=== PATIENT | female | born 1990 | race African-American/Black ===

== ENCOUNTER 2016-12-01 03:28 | Emergency (ER) | payer OTHER ==
[2016-12-01 03:39] VITALS: BP 115/75; PULSE 87; TEMP 97.8; BMI 21.9
--- NOTE | 2016-12-01 04:04 | PDOC ---
History of Present Illness - General Chief Complaint: Back Pain Stated Complaint: BACK PAIN Time Seen by Provider: 12/01/16 04:03 - History of Present Illness Initial Comments: 12/01/16 05:24 CHIEF COMPLAINT: R sided back pain HISTORY OF PRESENT ILLNESS: 26 yo F with no significant PMH presents to ED with R sided back pain. Patient states she was about to 'do my sister's hair" when she started "feeling my muscle tighten on this side, I thought it would go away but it just kept getting worse." She denies any nausea, vomiting, headache, dizziness, loss of bowel or bladder function, loss of sensation, difficulty breathing, or chest pain. No recent travel or sick contacts. PAST MEDICAL HISTORY: Denies past medical history FAMILY HISTORY: Denies SOCIAL HISTORY: Lives at home with family. Denies tobacco, alcohol, illicit drug use. SURGICAL HISTORY: Denies ALLERGIES: No known drug allergies REVIEW OF SYSTEMS General/Constitutional: Denies fever or chills. Denies weakness, weight change. HEENT: Denies change in vision. Denies ear pain or discharge. Denies sore throat. Cardiovascular: Denies chest pain or shortness of breath. Respiratory: Denies cough, wheezing, or hemoptysis. Gastrointestinal: Denies nausea, vomiting, diarrhea or constipation. Denies rectal bleeding. Genitourinary: Denies dysuria, frequency, or change in urination. Musculoskeletal: Pain to R side of back. Skin and breasts: Denies rash or easy bruising. Neurologic: Denies headache, vertigo, loss of consciousness, or loss of sensation. PHYSICAL EXAM General Appearance: Well-appearing, appropriately dressed. No apparent distress , no intoxication. HEENT: EOMI, PERRLA, normal ENT inspection, normal voice, TMs normal, pharynx normal. No conjunctival pallor. No photophobia, scleral icterus. Neck: No midline tenderness to cervical spine. Supple. Trachea midline. No tenderness, rigidity, carotid bruit, stridor, lymphadenopathy, or thyromegaly. Respiratory/Chest: Lungs CTAB. No shortness of breath, chest tenderness, respiratory distress, accessory muscle use. No crackles, rales, rhonchi, stridor , wheezing, dullness Cardiovascular: RRR. S1, S2. No JVD, murmur, bradycardia, tachycardia. Vascular Pulses: Dorsalis-Pedis (R): 2+, Dorsalis-Pedis (L): 2+ Gastrointestinal/Abdominal: Normal bowel sounds. Abdomen soft, non-distended. No tenderness or rebound tenderness. No organomegaly, pulsatile mass, guarding , hernia, hepatomegaly, splenomegaly. Musculoskeletal/Extremities: Tenderness to R lower back over latissimus dorsi, spasms palpable. No saddle anesthesia. No loss of sensation to lower extremities. Sensory discrimination intact. No midline tenderness to thoracic or lumbar spine. Normal inspection. FROM of all extremities, normal capillary refill. Pelvis Stable. No CVA tenderness. No tenderness to extremities, pedal edema, swelling, erythema or deformity. Integumentary: Appropriate color, dry, warm. 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 Fully oriented, alert. Appropriate mood/affect. Motor strength 5/5. No appreciable EOM palsy, facial droop or sensory deficit. Past History - Past Medical History Allergies/Adverse Reactions: Allergies Allergy/AdvReac Type Severity Reaction Status Date / Time No Known Allergies Allergy Verified 12/01/16 03:36 Home Medications: Ambulatory Orders No Home Medications 0 dose .ROUTE UTDICT 09/18/13 Cyclobenzaprine HCl [Flexeril -] 5 mg PO TID #10 tablet 12/01/16 Naproxen 250 mg PO BID #14 tablet 12/01/16 Asthma: No Cancer: No Cardiac Disorders: No Diabetes: No HTN: No Seizures: No Thyroid Disease: No Other medical history: denies - Psycho/Social/Smoking Cessation Hx Anxiety: Yes (PANIC ATTACKS) Suicidal Ideation: No Smoking Status: No Smoking History: Never smoked Have you smoked in the past 12 months: No Number of Cigarettes Smoked Daily: 0 Hx Alcohol Use: No Drug/Substance Use Hx: No Hx Substance Use Treatment: No *Physical Exam - Vital Signs Last Vital Signs Temp Pulse Resp BP Pulse Ox 97.8 F 87 18 115/75 100 12/01/16 03:37 12/01/16 03:37 12/01/16 03:37 12/01/16 03:37 12/01/16 03:37 Medical Decision Making - Medical Decision Making 12/01/16 06:13 26 yo F with no PMH presents to ED with R sided back pain. -2 mg Valium po -800 mg Motrin Patient reassessed, states she still has pain at this time. -Additional 2mg Valium po Patient reassessed. Patient is sleeping at this time but arousable; she states she is feeling a little better and is able to sit up in her bed. Patient states she is ready to go home. Advised patient to take medications as prescribed and of signs and symptoms for return to ED. Advised patient to follow up with orthopedics today for further evaluation of her back pain. Patient verbalized understanding and agrees to plan. *DC/Admit/Observation/Transfer Diagnosis at time of Disposition: Muscle spasm - Discharge Dispostion Disposition: HOME Condition at time of disposition: Stable Admit: No - Prescriptions Prescriptions: Cyclobenzaprine HCl [Flexeril -] 5 mg PO TID #10 tablet Naproxen 250 mg PO BID #14 tablet - Referrals Referrals: Lakia Newton MD [Primary Care Provider] - Jax Cárdenas MD [Staff Physician] - - Patient Instructions Printed Discharge Instructions: DI for Back Spasm Additional Instructions: Please take medication as prescribed; do NOT drive or operate machinery while taking cyclobenzaprine. As discussed, please follow up with orthopedics today. If you experience any loss of sensation to your legs, thighs, or have any loss of bowel or bladder function, or develop any new or worsening symptoms, please return to the ER immediately. - Post Discharge Activity Work/School Note: Back to Work
[2016-12-01] MEDS ORDERED: diazePAM 2 MG TABLET PO ONE ×2 (04:05→05:11)
[2016-12-01] MEDS ORDERED: diazePAM 2 MG TABLET ONE ×2 (04:18→05:18)
[2016-12-01] MEDS ORDERED: IBUPROFEN 400 MG TABLET (FP) PO ONE ×2 (04:23→04:27)
[2016-12-01 05:58] LABS: URINE APPEARANCE CLOUDY; URINE BILIRUBIN NEGATIVE (NEGATIVE); URINE BLOOD NEGATIVE (NEGATIVE); URINE COLOR AMBER; URINE GLUCOSE (UA) NEGATIVE (NEGATIVE); URINE KETONE NEGATIVE (NEGATIVE); URINE LEUK ESTERASE NEGATIVE (NEGATIVE); URINE NITRITE NEGATIVE (NEGATIVE); URINE UROBILINOGEN 4.0 E.U/dl E.U./dl (0.2-1.0)
[2016-12-01 06:03] LABS: URINE PROTEIN 1+ (NEGATIVE)
[2016-12-01 06:06] LABS: URINE MUCUS MANY
== END 2016-12-01 06:53 | disposition home or self-care (01) ==
LOC: JER 03:28
DX: M62.830 Muscle spasm of back (principal)
CPT/HCPCS: 81003; 81015; 84703; 87086; 99282-25

== ENCOUNTER 2017-02-09 13:19 | Emergency (ER) | payer OTHER ==
[2017-02-09 13:26] VITALS: BP 120/80; PULSE 88; TEMP 97.7; BMI 20.3
[2017-02-09 14:33] LABS: MCHC 32.2 g/dl (32.0-36.0); MEAN CELL VOLUME 93.1 fl (80-96); MEAN PLT VOLUME 11.1 fl (7.5-11.1); NEUTROPHILS 52.7 % (42.8-82.8); RDW 15.6 % (11.6-15.6); WHITE BLOOD COUNT 5.3 K/mm3 (4.0-10.0)
--- NOTE | 2017-02-09 14:36 | PDOC ---
History of Present Illness - General Chief Complaint: Shortness of Breath Stated Complaint: CHEST PAIN, SOB Time Seen by Provider: 02/09/17 13:49 History Source: Patient Exam Limitations: No Limitations - History of Present Illness Initial Comments: 02/09/17 14:32 26 yr female history of anemia states she has left sided chest pain, cough , sore throat and feels weak. Pt states this started today at 930 during a job interview. Pt states she has had the same symtpoms happen at random times before. Pt denies fever, chills , does not use any OCP, last menstrual one week ago. Pt admits to smoking, drinks "4 cups" different types of alcohol daily. denies drug use. 02/09/17 14:33 Severity: mild Associated Symptoms: reports: chest pain, cough, weakness Aspirin Received prior to arrival: Yes: 81 mg x 1 Past History - Past Medical History Allergies/Adverse Reactions: Allergies Allergy/AdvReac Type Severity Reaction Status Date / Time No Known Allergies Allergy Verified 02/09/17 13:20 Home Medications: Ambulatory Orders NK [No Known Home Medication] 02/09/17 Asthma: No Cancer: No Cardiac Disorders: No Diabetes: No HTN: No Psychiatric Problems: Yes (anxeity) Seizures: No Thyroid Disease: No - Reproductive History LMP Normal: Yes Is Patient Now?: No - Psycho/Social/Smoking Cessation Hx Anxiety: Yes (PANIC ATTACKS) Suicidal Ideation: No Smoking Status: No Smoking History: Never smoked Have you smoked in the past 12 months: Yes Number of Cigarettes Smoked Daily: 4 Information on smoking cessation initiated: Yes Hx Alcohol Use: No Drug/Substance Use Hx: No Hx Substance Use Treatment: No Review of Systems - Review of Systems Able to Perform ROS?: Yes Is the patient limited Portuguese proficient: No Constitutional: No: Symptoms Reported HEENTM: Yes: See HPI Respiratory: Yes: See HPI Cardiac (ROS): Yes: See HPI *Physical Exam - Vital Signs Last Vital Signs Temp Pulse Resp BP Pulse Ox 97.7 F 88 18 120/80 100 02/09/17 13:22 02/09/17 13:22 02/09/17 13:22 02/09/17 13:22 02/09/17 13:22 - Physical Exam General Appearance: Yes: Nourished, Appropriately Dressed HEENT: positive: EOMI, TYREE, Pharyngeal Erythema, Tonsillar Erythema. negative : Tonsillar Exudate Neck: positive: Supple. negative: Lymphadenopathy (R), Lymphadenopathy (L) Respiratory/Chest: positive: Chest Tender (reproducable left sternal border ), Lungs Clear, Normal Breath Sounds Cardiovascular: positive: Regular Rhythm, Regular Rate Gastrointestinal/Abdominal: positive: Normal Bowel Sounds, Soft Musculoskeletal: positive: Normal Inspection Extremity: positive: Normal Capillary Refill, Normal Inspection, Normal Range of Motion Integumentary: positive: Normal Color, Dry, Warm, Jaundice (mild sclera icterus) , Pale, Other (pale ) Neurologic: positive: Fully Oriented, Alert, Normal Mood/Affect, Normal Response , Motor Strength 5/5 Heart Score/ECG Review - ECG Intrepretation Rhythm: Regular Rhythm - ECG Impressions Normal ECG: Yes Non-specific ST Elevation: No Comment:: 02/09/17 15:58 normal EKG signed by Dr.Levin Hopson ED Treatment Course - LABORATORY CBC & Chemistry Diagram: 02/09/17 14:00 02/09/17 15:45 Medical Decision Making - Medical Decision Making 02/09/17 14:58 cc: sore throat, cough, chest pain , weakness will r/o strep, labs, EKG CXR toradol anxiety vs musculoskeltal cp no risk factors for PE neg travel or recent surgery no control risk , no history of cancer Wells criteria low risk 02/09/17 16:39 labs, CXR EKG normal. pt states she is hungry and needs to go home and eat. dc inst given to pt. pt states she feels better her pain has subsided. dc with friend. *DC/Admit/Observation/Transfer Diagnosis at time of Disposition: Cough - Discharge Dispostion Disposition: HOME Condition at time of disposition: Good - Referrals Referrals: Lakia Newton MD [Primary Care Provider] - - Patient Instructions Additional Instructions: follow with your medical doctor for follow up drink pleanty of fluids to stay well hydrated take motrin for any pain as needed return to ER for any worsening symptoms
[2017-02-09] MEDS ORDERED: KETOROLAC TROMETHAMINE 30 MG/1 ML VIAL IVPUSH ONE (14:58)
[2017-02-09] MEDS ORDERED: FAMOTIDINE 20 MG/50 ML IVPB 50 ML IVPB ONE ×2 (14:58→15:07)
[2017-02-09] MEDS ORDERED: KETOROLAC TROMETHAMINE 30 MG/1 ML VIAL ONE (15:06)
[2017-02-09] MEDS ORDERED: NAPROXEN 500 MG TABLET (FP) PO ONE (15:30)
[2017-02-09] MEDS ORDERED: RANITIDINE HCL 150 MG TABLET (FP) PO ONE (15:31)
[2017-02-09] MEDS ORDERED: RANITIDINE HCL 150 MG TABLET (FP) ONE (15:37)
[2017-02-09] MEDS ORDERED: NAPROXEN 500 MG TABLET (FP) ONE (15:37)
--- NOTE | 2017-02-09 15:55 | EKG ---
Test Reason : Blood Pressure : / mmHG Vent. Rate : 079 BPM Atrial Rate : 079 BPM P-R Int : 152 ms QRS Dur : 068 ms QT Int : 418 ms P-R-T Axes : 071 058 051 degrees QTc Int : 479 ms NORMAL SINUS RHYTHM NORMAL ECG NO PREVIOUS ECGS AVAILABLE Confirmed by EMRE LEÓN MD ([id number]) on 02/09/2017 3:55:23 PM Referred By: Confirmed By:EMRE LEÓN MD
[2017-02-09 15:57] LABS: URINE APPEARANCE CLEAR; URINE BILIRUBIN NEGATIVE (NEGATIVE); URINE BLOOD NEGATIVE (NEGATIVE); URINE COLOR YELLOW; URINE GLUCOSE (UA) NEGATIVE (NEGATIVE); URINE KETONE NEGATIVE (NEGATIVE); URINE LEUK ESTERASE NEGATIVE (NEGATIVE); URINE NITRITE NEGATIVE (NEGATIVE); URINE PROTEIN NEGATIVE (NEGATIVE); URINE UROBILINOGEN 2.0 E.U/dl E.U./dl (0.2-1.0)
[2017-02-09 16:20] LABS: ALBUMIN 3.5 g/dl (3.4-5.0); ALK PHOS 94 U/L (45-117); ANION GAP 7 (8-16); BILIRUBIN,TOTAL 1.9 mg/dL (0.2-1.0); CALCIUM 8.7 mg/dL (8.5-10.1); CO2 28 mmol/L (21-32); CREATININE 0.7 mg/dL (0.55-1.02); GLUCOSE,RANDOM 70 mg/dL (74-106); SGOT/AST 16 U/L (15-37); SGPT/ALT 11 U/L (12-78)
[2017-02-09 22:14] LABS: PLATELET COUNT 122 K/MM3 (134-434); PLATELET ESTIMATE SLT DECREASED (NORMAL)
== END 2017-02-09 17:30 | disposition home or self-care (01) ==
LOC: JERFT 13:19
DX: R05 Cough (principal); F41.0 Panic disorder [episodic paroxysmal anxiety]; Z87.891 Personal history of nicotine dependence
CPT/HCPCS: 36415; 71020-TC; 80053; 80307; 81003; 84703; 85025; 87070; 87430; 93005; 93010; 99281-25

== ENCOUNTER 2018-03-10 08:00 | Inpatient (IN) | payer OTHER ==
[2018-03-10] MEDS: DEXTROSE 5%-LACTATED RINGERS 1,000 ML IV SCH ×2 (09:30→13:00)
[2018-03-10 10:06] LABS: BASO % 0.3 % (0-2.0); EOS % 0.8 % (0-4.5); HEMATOCRIT 32.5 % (32.4-45.2); HEMOGLOBIN 10.9 GM/dL (10.7-15.3); LYMPH % 21.5 % (8-40); MCH 29.1 pg (25.7-33.7); MCHC 33.6 g/dl (32.0-36.0); MEAN CELL VOLUME 86.4 fl (80-96); MEAN PLT VOLUME 11.3 fl (7.5-11.1); MONO % 8.7 % (3.8-10.2); NEUT % 68.7 % (42.8-82.8); PLATELET COUNT 90 K/MM3 (134-434); RBC 3.76 M/mm3 (3.60-5.2); RDW 13.1 % (11.6-15.6); WHITE BLOOD COUNT 7.5 K/mm3 (4.0-10.0)
[2018-03-10] MEDS ORDERED: DINOPROSTONE 10 MG VAGINAL SUPPOSITORY VG ONE (10:20)
[2018-03-10 10:22] LABS: INR 1.1 (0.82-1.09); PROTHROMBIN TIME (PATIENT) 12.4 SEC (9.7-13.0)
[2018-03-10 10:25] LABS: ACTIVATED PTT 29.5 SECONDS (26.9-34.4); ANION GAP 6 (8-16); BLOOD UREA NITROGEN 8 mg/dL (7-18); CALCIUM 8.1 mg/dL (8.5-10.1); CHLORIDE 106 mmol/L (98-107); CO2 26 mmol/L (21-32); CREATININE 0.5 mg/dL (0.55-1.02); GLUCOSE,RANDOM 125 mg/dL (74-106); POTASSIUM 3.8 mmol/L (3.5-5.1); SODIUM 138 mmol/L (136-145)
[2018-03-10] MEDS ORDERED: BUTORPHANOL TARTRATE 1 MG/ML VIAL IVPB ONE (10:32)
[2018-03-10] MEDS ORDERED: PROMETHAZINE HCL 25 MG/1 ML VIAL IVPB ONE (10:32)
[2018-03-10] MEDS ORDERED: SODIUM PHOSPHATE/NA BIPHOS 133 ML ENEMA PR ONE (10:35)
--- NOTE | 2018-03-10 10:43 | HP ---
Past Medical History - Primary Care Physician PCP:: Camille Cifuentes - Admission Chief Complaint: 27 yrs b/f, , 40.4 weeks , pt requests for induction of labor History of Present Illness: PNC at , [facility] . wt gain 52 lbs panel 07/21/17 : O pos, Rubella immune, Hbsag neg, Rpr nr, Hiv neg, Sickle neg, Gc/ct neg 11/25/17 Pngt 86, Quantiferon neg, Rpr nr 02/07/18 Hiv neg, GBS neg, gc/ct neg h/h 11.1/33.4Plt 102 Serial son done by [facility] for growth NT screen neg, Modified Sequential neg 03/07/18 sono SLIuP, vx, ant placenta, mohamud 21.4, ( progressively increasing MOHAMUD noted, 02/15/18 mohamud 18.8) , BPP8/8, EFW 7'3' ,umblical artery dopplers normal History Source: Patient, Medical Record Limitations to Obtaining History: No Limitations - Past Medical History [employer]: No: Migraine, Seizure Cardiovascular: No: HTN Pulmonary: No: Asthma Gastrointestinal: No: Gastritis Renal/: No: UTI Reproductive: Yes: Other (h/o abn pap) ...: 3 ...Para: 2 (08/20/07 6'12'( molly ) 03/15/13 8'6" ([facility])) ...Term: 2 (h/i induction of labor due to post term in previous pregn .) ...LMP: 05/30/17 ... Weeks Gestation by Dates: 40.4 ...EDC by Dates: 03/06/18 ...EDC by Sono: 03/06/18 Heme/Onc: Yes: Anemia Infectious Disease: Yes: STD's (past h/o chlamydia h/o HPV pos) Psych: Yes: Anxiety Endocrine: No: Diabetes Mellitus, Hypothyroidism - Past Surgical History Past Surgical History: Yes: None Hx Myomectomy: No Hx Transabdominal Cerclage: No - Smoking History Smoking history: Never smoked Have you smoked in the past 12 months: Yes Aproximately how many cigarettes per day: 4 - Alcohol/Substance Use Hx Alcohol Use: No History of Substance Use: reports: None Home Medications - Allergies Allergies/Adverse Reactions: Allergies Allergy/AdvReac Type Severity Reaction Status Date / Time No Known Allergies Allergy Verified 03/10/18 11:58 - Home Medications Home Medications: Ambulatory Orders Vitamins (Sjr) - 1 tab PO DAILY 01/30/18 Physical Exam - Maternity Vital Signs: Selected Entries 03/10/18 08:00 Temperature 97.6 F Pulse Rate 88 Respiratory 18 Rate Blood Pressure 116/69 Weight 195 lb Constitutional: Yes: Well Nourished Eyes: Yes: WNL HENT: Yes: WNL, Normocephalic Neck: Yes: WNL Cardiovascular: Yes: WNL Lungs: Clear to auscultation Breast(s): Yes: WNL - Abdominal Exam/OB Fundal Height: 40 Number of Fetuses: Single Presentation: Vertex Contractions: Yes Regularity: Irregular (8-10 min) Intensity: Mild Monitor Mode: External Heart Rate (range): 130 Heart Rate Location: [facility] Category: I Accelerations: Uniform Decelerations: None - Vaginal Exam/OB Vaginal Bleediing: No Speculum Exam: No Dilatation (cm): ftpost Effacement (%): 40 Amniotic Membrane Status: Intact Presentation: Vertex/Position (exam at 10.20 AM Cervidil inserted) Station: -3 - Physical Exam Musculoskeletal: Yes: WNL Extremities: Yes: WNL. No: Calf Tenderness Edema: Yes Edema: LLE: 1+, RLE: 1+ Integumentary: Yes: Tattoos Deep Tendon Reflex Grade: Normal +2 ...Motor Strength: WNL Psychiatric: Yes: WNL - Labs Lab Results: CBC, BMP 03/10/18 09:50 Laboratory Tests 03/10/18 03/10/18 09:50 09:50 PT with INR 12.40 INR 1.10 PTT (Actin FS) 29.5 Sodium 138 Potassium 3.8 Chloride 106 Carbon Dioxide 26 BUN 8 Creatinine 0.5 L Random Glucose 125 H Calcium 8.1 L Laboratory Tests 03/10/18 09:50 Blood Type O POSITIVE Antibody Screen Negative Problem List - Problems (1) Post term over 40 weeks Code(s): O48.0 - POST-TERM (2) Elective induction of labor planned Code(s): UNB5142 - (3) Gestational thrombocytopenia Code(s): O99.119 - OTH DIS OF BLD/BLD-FORM ORG/IMMUN MECHNSM COMP PREG,UNSP TRI ; D69.6 - THROMBOCYTOPENIA, UNSPECIFIED Qualifiers: Trimester: third trimester Qualified Code(s): O99.113 - Other diseases of the blood and blood-forming organs and certain disorders involving the immune mechanism complicating , third trimester; D69.6 - Thrombocytopenia, unspecified; D69.6 - Thrombocytopenia, unspecified; D69.6 - Thrombocytopenia, unspecified Assessment/Plan 27 yrs , post term pregn 40.4 weeks , gestational thrombocytopenia ( 90 plt ) , high MOHAMUD (21.4) Polyhydramnios Cx not faforable, pt declines to wait plan induction : of labor Cervidil. trial of labor vag , delivery stadol phenrgan for labor analgesia
[2018-03-10 11:06] VITALS: BMI 30.5
[2018-03-11] MEDS ORDERED: OXYTOCIN 30 UNITS in 0.9% NS 30 UNIT/500 ML INFUS.BAG IVPB ONE (02:57)
[2018-03-11] MEDS ORDERED: OXYTOCIN 30 UNITS in 0.9% NS 30 UNIT/500 ML INFUS.BAG IVPB SCH (03:00)
[2018-03-11] MEDS ORDERED: BUTORPHANOL TARTRATE 1 MG/ML VIAL ONE ×4 (05:15→11:57)
[2018-03-11] MEDS ORDERED: PROMETHAZINE HCL 25 MG/1 ML VIAL ONE ×2 (05:15→11:57)
--- NOTE | 2018-03-11 08:21 | PN ---
Progress Note (short form) - Note Progress Note: cx 1 cm, 25, vx -3 mi, fhr cat 1, regular contraction, care transfer to DR [place]
[2018-03-11] MEDS: DEXTROSE 5%-LACTATED RINGERS 1,000 ML IV SCH (10:15)
[2018-03-11 11:59] LABS: HEMATOCRIT 35.5 % (32.4-45.2); HEMOGLOBIN 11.9 GM/dL (10.7-15.3); MCH 28.8 pg (25.7-33.7); MCHC 33.6 g/dl (32.0-36.0); MEAN CELL VOLUME 85.6 fl (80-96); MEAN PLT VOLUME 11.5 fl (7.5-11.1); PLATELET COUNT 88 K/MM3 (134-434); RBC 4.15 M/mm3 (3.60-5.2); RDW 13.1 % (11.6-15.6); WHITE BLOOD COUNT 9.8 K/mm3 (4.0-10.0)
[2018-03-11] MEDS ORDERED: BUTORPHANOL TARTRATE 1 MG/ML VIAL IVPB ONE (12:30)
[2018-03-11] MEDS ORDERED: PROMETHAZINE HCL 25 MG/1 ML VIAL IVPB ONE (12:30)
[2018-03-11] MEDS ORDERED: OXYTOCIN 20 UNITS in 0.9% NS 20 UNIT/1,000 ML INFUS.BAG IV ONE (13:05)
[2018-03-11] MEDS ORDERED: BISACODYL 10 MG SUPP.RECT RC PRN (14:29)
[2018-03-11] MEDS ORDERED: METHYLERGONOVINE MALEATE 0.2 MG/1 ML AMP IM PRN (14:29)
[2018-03-11] MEDS ORDERED: BENZOCAINE 20% 57 GM BOTTLE TP PRN (14:29)
[2018-03-11] MEDS ORDERED: BENZOCAINE 28 GM HEMORRHOIDAL OINTMENT TP PRN (14:29)
[2018-03-11] MEDS ORDERED: D5W-LR W/ 20 UNITS OXYTOCIN 20 UNIT/1,000 ML INFUS.BAG IV SCH (14:30)
[2018-03-11] MEDS ORDERED: OXYTOCIN 20 UNITS in 0.9% NS 20 UNIT/1,000 ML INFUS.BAG IV SCH (14:30)
[2018-03-11] MEDS: FERROUS SO4 325 MG TABLET (FP) PO SCH (17:11)
[2018-03-11] MEDS: IBUPROFEN 600 MG TABLET (FP) PO PRN ×2 (17:11→22:01)
[2018-03-11] MEDS: ACETAMINOPHEN 325 MG TABLET (FP) PO PRN ×2 (17:12→22:02)
[2018-03-11] MEDS: WITCH HAZEL 50% (TUCKS) 40 PAD/JAR PAD TP PRN (22:02)
[2018-03-12] MEDS: IBUPROFEN 600 MG TABLET (FP) PO PRN ×3 (04:51→20:36)
[2018-03-12] MEDS: ACETAMINOPHEN 325 MG TABLET (FP) PO PRN ×3 (04:51→20:36)
[2018-03-12] MEDS: FERROUS SO4 325 MG TABLET (FP) PO SCH ×2 (08:20→17:01)
[2018-03-12 09:34] LABS: BASO % 0.2 % (0-2.0); EOS % 0.7 % (0-4.5); HEMATOCRIT 30.2 % (32.4-45.2); HEMOGLOBIN 10.3 GM/dL (10.7-15.3); LYMPH % 17.5 % (8-40); MCH 29.4 pg (25.7-33.7); MCHC 34.1 g/dl (32.0-36.0); MEAN CELL VOLUME 86.4 fl (80-96); MEAN PLT VOLUME 12.3 fl (7.5-11.1); MONO % 8.2 % (3.8-10.2); NEUT % 73.4 % (42.8-82.8); PLATELET COUNT 80 K/MM3 (134-434); RBC 3.49 M/mm3 (3.60-5.2); RDW 13.3 % (11.6-15.6); WHITE BLOOD COUNT 10.4 K/mm3 (4.0-10.0)
[2018-03-12] MEDS: PRENATAL VITAMINS W/ FOLIC ACID TABLET (FP) PO SCH (09:44)
[2018-03-12] MEDS: WITCH HAZEL 50% (TUCKS) 40 PAD/JAR PAD TP PRN (20:37)
[2018-03-12] MEDS ORDERED: SENNOSIDES/DOCUSATE COMBO (SENNA PLUS) TABLET (UD) PO PRN (22:00)
[2018-03-13] MEDS: IBUPROFEN 600 MG TABLET (FP) PO PRN ×2 (00:50→09:42)
[2018-03-13] MEDS: ACETAMINOPHEN 325 MG TABLET (FP) PO PRN ×2 (00:51→09:43)
[2018-03-13 07:34] VITALS: BP 120/65; PULSE 72; TEMP 97.5
[2018-03-13] MEDS: FERROUS SO4 325 MG TABLET (FP) PO SCH (08:10)
[2018-03-13] MEDS: PRENATAL VITAMINS W/ FOLIC ACID TABLET (FP) PO SCH (09:44)
== END 2018-03-13 14:10 | disposition home or self-care (01) | DRG 560 ==
LOC: JLDR 08:00 → J3W 03-11 14:45
PROVIDERS: ADMIT Obstetrics & Gynecology; ATTEND Obstetrics & Gynecology
PROC: 0HQ9XZZ Repair Perineum Skin, External Approach (ICD-10-PCS; principal; 2018-03-11)
PROC: 10E0XZZ Delivery of Products of Conception, External Approach (ICD-10-PCS; 2018-03-11)
DX: O48.0 Post-term pregnancy (principal); O99.12 Other diseases of the blood and blood-forming organs and certain disorders involving the immune mechanism complicating childbirth; D69.6 Thrombocytopenia, unspecified; O70.0 First degree perineal laceration during delivery; Z3A.40 40 weeks gestation of pregnancy; Z37.0 Single live birth
CPT/HCPCS: 36415; 59409; 80048; 85025; 85027; 85610; 85730; 86593; 86850; 86900; 86901

== ENCOUNTER 2019-12-15 22:57 | Emergency (ER) | payer OTHER ==
[2019-12-15 23:00] VITALS: BP 146/95; PULSE 91; TEMP 98.7; BMI 26.6
--- NOTE | 2019-12-15 23:43 | PDOC ---
History of Present Illness - General Chief Complaint: Toothache Stated Complaint: TOOTH PAIN Time Seen by Provider: 12/15/19 23:43 History Source: Patient - History of Present Illness Initial Comments: 12/16/19 00:52 29-year-old female complaining of left lower toothache and swelling. Patient reports that she was seen by her dentist earlier today and was given clindamycin. Patient was advised to take ibuprofen with no relief in pain Patient is able to open her mouth. No respiratory distress, drooling. No fevers/chills Past History - Past Medical History Allergies/Adverse Reactions: Allergies Allergy/AdvReac Type Severity Reaction Status Date / Time No Known Allergies Allergy Verified 12/15/19 23:00 Home Medications: Ambulatory Orders Vitamins (Sjr) - 1 tab PO DAILY 01/30/18 Oxycodone HCl/Acetaminophen [Percocet 5-325 mg Tablet] 1 tab PO Q4H PRN #10 tablet MDD 4 12/16/19 Asthma: No Cancer: No Cardiac Disorders: No COPD: No Diabetes: No HTN: No Psychiatric Problems: Yes (anxeity) Seizures: No Thyroid Disease: No - Psycho Social/Smoking Cessation Hx Smoking Status: No Smoking History: Never smoked Have you smoked in the past 12 months: Yes Number of Cigarettes Smoked Daily: 4 Hx Alcohol Use: No Drug/Substance Use Hx: No Hx Substance Use Treatment: No *Physical Exam - Vital Signs Last Vital Signs Temp Pulse Resp BP Pulse Ox 98.7 F 91 H 18 146/95 99 12/15/19 22:59 12/15/19 22:59 12/15/19 22:59 12/15/19 22:59 12/15/19 22:59 - Physical Exam General Appearance: Yes: Appropriately Dressed HEENT: positive: Other (left lower molar tooth decay / gum swelling. no trismus) . negative: Excessive drooling Neck: positive: Trachea midline Medical Decision Making - Medical Decision Making A: dental Abscess P: pain control continue clindamycin strict return precautions reviewed with patient Discharge - Discharge Information Problems reviewed: Yes Clinical Impression/Diagnosis: Dental abscess Disposition: HOME - Additional Discharge Information Prescriptions: Oxycodone HCl/Acetaminophen [Percocet 5-325 mg Tablet] 1 tab PO Q4H PRN #10 tablet MDD 4 PRN Reason: Pain - Follow up/Referral - Patient Discharge Instructions Patient Printed Discharge Instructions: DI for Tooth Abscess Additional Instructions: . Apply warm compress to the outer cheek. Continue clindamycin as prescribed Take ibuprofen every 6 hours as needed for pain Take Percocet every 6 hours as needed for moderate pain Follow-up with your dentist tomorrow Return to the emergency room for any worsening symptoms - Post Discharge Activity Work/Back to School Note: Back to Work
[2019-12-16] MEDS ORDERED: AMOX TR/POT CLAV 875MG/125MG TABLETS (FP) PO ONE (00:22)
[2019-12-16] MEDS ORDERED: AMOX TR/POT CLAV 875MG/125MG TABLETS (FP) ONE (00:31)
[2019-12-16] MEDS ORDERED: KETOROLAC TROMETHAMINE 30 MG/1 ML VIAL IM ONE (01:09)
[2019-12-16] MEDS ORDERED: KETOROLAC TROMETHAMINE 30 MG/1 ML VIAL ONE (01:10)
== END 2019-12-16 01:19 | disposition home or self-care (01) ==
LOC: JER 22:57
PROC: 3E0233Z Introduction of Anti-inflammatory into Muscle, Percutaneous Approach (ICD-10-PCS; principal; 2019-12-15)
DX: K04.7 Periapical abscess without sinus (principal)
CPT/HCPCS: 96372; 99281-25

== ENCOUNTER 2020-01-20 20:47 | Emergency (ER) | payer OTHER ==
[2020-01-20 20:52] VITALS: TEMP 98.3; BMI 26.6
[2020-01-20] MEDS ORDERED: FAMOTIDINE 20 MG/50 ML IVPB 20 MG/50 ML MG IVPB ONE ×2 (21:59→22:07)
[2020-01-20] MEDS ORDERED: METOCLOPRAMIDE HCL INJECTION 10 MG/2 ML VIAL IVPUSH ONE (21:59)
[2020-01-20] MEDS ORDERED: SODIUM CHLORIDE 0.9% 500 ML INFUS.BAG IV ONE (21:59)
[2020-01-20] MEDS ORDERED: HALOPERIDOL LACTATE 5 MG/ML IM ONE (21:59)
--- NOTE | 2020-01-20 22:03 | PDOC ---
History of Present Illness - General Chief Complaint: Nausea/Vomiting Stated Complaint: STOMACH PAIN History Source: Patient Exam Limitations: No Limitations - History of Present Illness Initial Comments: 01/20/20 21:57 Patient is a 29 year old female with no pmhx c/o nausea and vomiting since about 12:30 pm this am. Per significant other patient has been using marijuana more frequently eating. Yesterday used marijuana and drank all day. Vomiting started this morning and persisted all day now having bilious vomiting associated with abdominal pain which is 8/10, only with vomiting. She has been attempting to stay hydrated but is intolerant of solids and liquids. Denies fever, chills, dysuria. PMHX: neg PSOCHX: as above FamHX: Noncontributory ALL: NKDA GENERAL/CONSTITUTIONAL: [No fever or chills. No weakness. No weight change.] HEAD, EYES, EARS, NOSE AND THROAT: [No change in vision. No ear pain or discharge. No sore throat.] CARDIOVASCULAR: [No chest pain or shortness of breath.] RESPIRATORY: [No cough, wheezing, or hemoptysis.] GASTROINTESTINAL: [No nausea, vomiting, diarrhea or constipation. No rectal bleeding.] GENITOURINARY: [No dysuria, frequency, or change in urination.] MUSCULOSKELETAL: [No joint or muscle swelling or pain. No neck or back pain.] SKIN AND BREASTS: [No rash or easy bruising.] NEUROLOGIC: [No headache, vertigo, loss of consciousness, or loss of sensation.] PSYCHIATRIC: [No depression or anxiety.] ENDOCRINE: [No increased thirst. No abnormal weight change.] HEMATOLOGIC/LYMPHATIC: [No anemia, easy bleeding, or history of blood clots.] ALLERGIC/IMMUNOLOGIC: [No hives or skin allergy. No latex allergy.] GENERAL: [The patient is awake, alert, and fully oriented, in moderate distress, actively vomiting.] HEAD: [Normal with no signs of trauma.] EYES: [Pupils equal, round and reactive to light, extraocular movements intact, sclera anicteric, conjunctiva clear.] ENT: [Ears normal, nares patent, oropharynx clear without exudates. Moist mucous membranes.] NECK: [Normal range of motion, supple without lymphadenopathy, JVD, or masses.] LUNGS: [Breath sounds equal, clear to auscultation bilaterally. No wheezes, and no crackles.] HEART: [Regular rate and rhythm, normal S1 and S2 without murmur, rub.] ABDOMEN: [Soft, nontender, normoactive bowel sounds. No guarding, no rebound. No masses.] EXTREMITIES: [Normal range of motion, no edema. No clubbing or cyanosis. No cords, erythema, or tenderness.] NEUROLOGICAL: [Cranial nerves II through XII grossly intact. Normal speech, normal gait.] PSYCH: [Normal mood, normal affect.] SKIN: [Warm, Dry, normal turgor, no rashes or lesions noted.] Past History - Past Medical History Allergies/Adverse Reactions: Allergies Allergy/AdvReac Type Severity Reaction Status Date / Time No Known Allergies Allergy Verified 01/20/20 20:48 Home Medications: Ambulatory Orders Vitamins (Sjr) - 1 tab PO DAILY 01/30/18 Oxycodone HCl/Acetaminophen [Percocet 5-325 mg Tablet] 1 tab PO Q4H PRN #10 tablet MDD 4 12/16/19 Asthma: No Cancer: No Cardiac Disorders: No COPD: No Diabetes: No HTN: No Psychiatric Problems: Yes (anxeity) Seizures: No Thyroid Disease: No - Psycho Social/Smoking Cessation Hx Smoking Status: No Smoking History: Never smoked Have you smoked in the past 12 months: Yes Number of Cigarettes Smoked Daily: 4 Hx Alcohol Use: No Drug/Substance Use Hx: No Hx Substance Use Treatment: No *Physical Exam - Vital Signs Last Vital Signs Temp Pulse Resp BP Pulse Ox 98.3 F 100 H 18 149/85 99 01/20/20 20:48 01/20/20 20:48 01/20/20 20:48 01/20/20 20:48 01/20/20 20:48 ED Treatment Course - LABORATORY CBC & Chemistry Diagram: 01/20/20 22:23 01/20/20 22:23 Medical Decision Making - Medical Decision Making 01/20/20 21:57 Patient is a 29 year old female with no pmhx c/o nausea and vomiting since about 12:30 pm this am. Per significant other patient has been using marijuana more frequently eating. Yesterday used marijuana and drank all day. Vomiting started this morning and persisted all day now having bilious vomiting associated with abdominal pain which is 8/10, only with vomiting. She has been attempting to stay hydrated but is intolerant of solids and liquids. Denies fever, chills, dysuria. DDX: Enteritis, cyclical vomiting syndrome, alcoholic gastritis Labs IV fluids, Reglan, Pepcid, Haldol Reassess Labs reviewed test is negative patient given Haldol 01/20/20 23:26 Patient vomited x2 given Zofran 4 mg IV and continued on IV fluids. Patient now sleeping. 01/20/20 23:28 Endorsed to the p.m. team pending hydration and disposition. Discharge - Discharge Information Problems reviewed: Yes Clinical Impression/Diagnosis: Nausea and vomiting Qualifiers: Vomiting type: unspecified Vomiting Intractability: unspecified Qualified Code(s): R11.2 - Nausea with vomiting, unspecified Condition: Stable - Follow up/Referral - Patient Discharge Instructions - Post Discharge Activity
[2020-01-20] MEDS ORDERED: METOCLOPRAMIDE HCL INJECTION 10 MG/2 ML VIAL ONE (22:06)
[2020-01-20 22:29] LABS: BASO % 0.2 % (0-2.0); EOS % 0.1 % (0-4.5); HEMATOCRIT 45.3 % (32.4-45.2); HEMOGLOBIN 15.2 GM/dL (10.7-15.3); LYMPH % 12.5 % (8-40); MCH 32.1 pg (25.7-33.7); MCHC 33.7 g/dl (32.0-36.0); MEAN CELL VOLUME 95.3 fl (80-96); MEAN PLT VOLUME 11.2 fl (7.5-11.1); MONO % 10.6 % (3.8-10.2); NEUT % 76.6 % (42.8-82.8); PLATELET COUNT 155 K/MM3 (134-434); RBC 4.75 M/mm3 (3.60-5.2); RDW 14.1 % (11.6-15.6); WHITE BLOOD COUNT 8.6 K/mm3 (4.0-10.0)
[2020-01-20 22:52] LABS: ALBUMIN 4.6 g/dl (3.4-5.0); BILIRUBIN,TOTAL 2.5 mg/dL (0.2-1); BLOOD UREA NITROGEN 10.4 mg/dL (7-18); CALCIUM 9.5 mg/dL (8.5-10.1); CREATININE 0.8 mg/dL (0.55-1.3); TOT PROT 9.6 g/dl (6.4-8.2)
[2020-01-20] MEDS ORDERED: HALOPERIDOL LACTATE 5 MG/ML ONE (22:54)
[2020-01-20] MEDS ORDERED: ONDANSETRON 4 MG/2 ML VIAL IVPUSH ONE (23:03)
[2020-01-20] MEDS ORDERED: ONDANSETRON 4 MG/2 ML VIAL ONE (23:51)
[2020-01-21 00:03] VITALS: BP 124/87; PULSE 94
--- NOTE | 2020-01-21 00:19 | PDOC ---
*Physical Exam - Vital Signs Last Vital Signs Temp Pulse Resp BP Pulse Ox 98.3 F 94 H 18 124/87 100 01/20/20 20:48 01/21/20 00:02 01/21/20 00:02 01/21/20 00:02 01/21/20 00:02 ED Treatment Course - LABORATORY CBC & Chemistry Diagram: 01/20/20 22:23 01/20/20 22:23 - ADDITIONAL ORDERS Additional order review: Laboratory Results 01/20/20 01/20/20 22:23 22:23 Sodium 137 Potassium 4.0 Chloride 101 Carbon Dioxide 18 L Anion Gap 18 H BUN 10.4 Creatinine 0.8 Est GFR (CKD-EPI)AfAm 113.86 Est GFR (CKD-EPI)NonAf 98.24 Random Glucose 76 Calcium 9.5 Total Bilirubin 2.5 H AST 29 ALT 21 Alkaline Phosphatase 131 H Total Protein 9.6 H Albumin 4.6 Lipase 45 L Serum , Qual Negative 01/20/20 22:23 RBC 4.75 MCV 95.3 MCHC 33.7 RDW 14.1 MPV 11.2 H Neutrophils % 76.6 Lymphocytes % 12.5 D Monocytes % 10.6 H Eosinophils % 0.1 D Basophils % 0.2 - Medications Given in the ED: ED Medications Discontinued Medications Generic Name Dose Route Start Last Admin Trade Name Dao PRN Reason Stop Dose Admin Haloperidol 5 mg 01/20/20 21:59 01/20/20 22:53 Haldol Injection (Fast Acting) - IM 01/20/20 22:00 5 mg ONCE ONE Administration Famotidine/Sodium Chloride 20 mg in 50 mls @ 100 mls/hr 01/20/20 21:59 01/20/20 23:02 Pepcid 20 Mg Premixed Ivpb - IVPB 01/20/20 22:28 100 mls/hr ONCE ONE Administration Metoclopramide HCl 10 mg 01/20/20 21:59 01/20/20 22:26 Reglan Injection - IVPUSH 01/20/20 22:00 10 mg ONCE ONE Administration Ondansetron HCl 4 mg 01/20/20 23:03 01/20/20 23:59 Zofran Injection IVPUSH 01/20/20 23:04 Not Given ONCE ONE Sodium Chloride 1,000 ml 01/20/20 21:59 03/07/20 22:25 Normal Saline - IV 01/20/20 22:00 1,000 ml ONCE ONE Administration Medical Decision Making - Medical Decision Making 01/21/20 00:18 Patient not endorsed to team. Went to the main emergency room found patient had eloped. Discharge - Discharge Information Problems reviewed: Yes Clinical Impression/Diagnosis: Nausea and vomiting Qualifiers: Vomiting type: unspecified Vomiting Intractability: unspecified Qualified Code(s): R11.2 - Nausea with vomiting, unspecified Condition: Stable Disposition: ELOPED - Follow up/Referral - Patient Discharge Instructions - Post Discharge Activity
== END 2020-01-21 00:21 | disposition left against medical advice (07) ==
LOC: JER 20:47
PROC: 3E033GC Introduction of Other Therapeutic Substance into Peripheral Vein, Percutaneous Approach (ICD-10-PCS; principal; 2020-01-20)
PROC: 3E033GC Introduction of Other Therapeutic Substance into Peripheral Vein, Percutaneous Approach (ICD-10-PCS; 2020-01-20)
PROC: 3E023NZ Introduction of Analgesics, Hypnotics, Sedatives into Muscle, Percutaneous Approach (ICD-10-PCS; 2020-01-20)
DX: R11.2 Nausea with vomiting, unspecified (principal); F12.90 Cannabis use, unspecified, uncomplicated; F10.10 Alcohol abuse, uncomplicated
CPT/HCPCS: 36415; 80053; 83690; 84703; 85025; 99284-25

== ENCOUNTER 2021-07-31 14:38 | Emergency (ER) | payer OTHER ==
[2021-07-31 15:04] VITALS: BMI 25.2
[2021-07-31 18:07] LABS: EOS % 0.3 % (0-4.5); HEMOGLOBIN 13.7 GM/dL (10.7-15.3); LYMPH % 33.5 % (8-40); MCH 35.1 pg (25.7-33.7); MCHC 34.4 g/dl (32.0-36.0); MEAN CELL VOLUME 102.1 fl (80-96); MEAN PLT VOLUME 9.8 fl (7.5-11.1); MONO % 13.8 % (3.8-10.2); NEUT % 51.4 % (42.8-82.8); PLATELET COUNT 143 10^3/uL (134-434); RBC 3.91 M/mm3 (3.60-5.2); RDW 14.2 % (11.6-15.6)
[2021-07-31 18:27] LABS: CHLORIDE 105 mmol/L (98-107); SODIUM 141 mmol/L (136-145)
[2021-07-31 18:28] LABS: ALBUMIN 3.6 g/dl (3.4-5.0); ANION GAP 8 MMOL/L (8-16); BLOOD UREA NITROGEN 5.7 mg/dL (7-18); CALCIUM 9.2 mg/dL (8.5-10.1); CO2 28 mmol/L (21-32); MAGNESIUM 1.4 mg/dL (1.8-2.4)
[2021-07-31 18:30] LABS: GLUCOSE,RANDOM 86 mg/dL (74-106)
[2021-07-31 18:31] LABS: CREATININE 0.7 mg/dL (0.55-1.3); SGOT/AST 144 U/L (15-37); SGPT/ALT 68 U/L (13-61)
[2021-07-31 18:33] LABS: BILIRUBIN,TOTAL 1.1 mg/dL (0.2-1); TOT PROT 7.8 g/dl (6.4-8.2)
[2021-07-31 18:34] LABS: ALK PHOS 103 U/L (45-117)
[2021-07-31 18:57] VITALS: BP 119/67; PULSE 67; TEMP 97.9
== END 2021-07-31 18:57 | disposition home or self-care (01) ==
LOC: JER 14:38
DX: R20.9 Unspecified disturbances of skin sensation (principal)
CPT/HCPCS: 36415; 80053; 82550; 83735; 84484; 85025; 93005; 93010; 99284-25

== ENCOUNTER 2021-09-03 11:38 | Emergency (ER) | payer OTHER ==
[2021-09-03 11:59] VITALS: BMI 25.0
[2021-09-03] MEDS ORDERED: FAMOTIDINE 20 MG/50 ML IVPB 20 MG/50 ML MG IVPB ONE ×2 (12:46→13:08)
[2021-09-03] MEDS ORDERED: SODIUM CHLORIDE 0.9% 500 ML INFUS.BAG IV ONE ×2 (12:46→14:40)
[2021-09-03] MEDS ORDERED: ONDANSETRON 4 MG/2 ML VIAL IVPUSH ONE (12:46)
[2021-09-03] MEDS ORDERED: MAG HYDROX/AL HYDROX/SIMETH 30 ML UNIT-DOSE CUP PO ONE (12:47)
[2021-09-03] MEDS ORDERED: ONDANSETRON 4 MG/2 ML VIAL ONE (13:08)
[2021-09-03] MEDS ORDERED: MAG HYDROX/AL HYDROX/SIMETH 30 ML UNIT-DOSE CUP ONE (13:08)
[2021-09-03 13:15] LABS: BASO % 0.5 % (0-2.0); EOS % 0.2 % (0-4.5); HEMOGLOBIN 16.4 GM/dL (10.7-15.3); LYMPH % 17.6 % (8-40); MCH 34.8 pg (25.7-33.7); MCHC 34.1 g/dl (32.0-36.0); MEAN CELL VOLUME 101.9 fl (80-96); MEAN PLT VOLUME 9.7 fl (7.5-11.1); MONO % 10.2 % (3.8-10.2); NEUT % 71.5 % (42.8-82.8); PLATELET COUNT 196 10^3/uL (134-434); RBC 4.71 M/mm3 (3.60-5.2); RDW 13.4 % (11.6-15.6); WHITE BLOOD COUNT 8.6 K/mm3 (4.0-10.0)
[2021-09-03 13:22] LABS: INR 1.15 (0.83-1.09); PROTHROMBIN TIME (PATIENT) 13.5 SEC (9.7-13.0)
[2021-09-03 13:46] LABS: EPI CELLS >36 /uL (0-25.1); HCG,QUALITATIVE URINE Negative; HYALINE CASTS 6 /uL (0-3.1); URINE APPEARANCE CLOUDY; URINE BACTERIA 4778 /uL (0-1359); URINE BILIRUBIN 3+ (NEGATIVE); URINE COLOR ORANGE; URINE GLUCOSE (UA) NEGATIVE (NEGATIVE); URINE KETONE 4+ (NEGATIVE); URINE LEUK ESTERASE TRACE (NEGATIVE); URINE NITRITE POSITIVE (NEGATIVE); URINE PROTEIN 1+ (NEGATIVE); URINE RBC 17 /uL (0-23.9); URINE WBC 29 /uL (0-25.8)
[2021-09-03 13:57] LABS: CHLORIDE 98 mmol/L (98-107); SODIUM 135 mmol/L (136-145)
[2021-09-03 13:59] LABS: ANION GAP 16 MMOL/L (8-16); CALCIUM 10.4 mg/dL (8.5-10.1); CO2 22 mmol/L (21-32)
[2021-09-03 14:00] LABS: ALBUMIN 4.2 g/dl (3.4-5.0); BLOOD UREA NITROGEN 9.3 mg/dL (7-18); LIPASE 61 U/L (73-393)
[2021-09-03 14:00] LABS: URINE AMPHETAMINES NEGATIVE (NEGATIVE)
[2021-09-03 14:01] LABS: COCAINE, UR NEGATIVE (NEGATIVE); OPIATES, URI NEGATIVE (NEGATIVE); PHENCYCLIDINE,URINE NEGATIVE (NEGATIVE); URINE BARBITURATES NEGATIVE (NEGATIVE); URINE BENZODIAZEPINES NEGATIVE (NEGATIVE)
[2021-09-03 14:02] LABS: SGOT/AST 114 U/L (15-37); SGPT/ALT 68 U/L (13-61)
[2021-09-03 14:03] LABS: CREATININE 0.9 mg/dL (0.55-1.3)
[2021-09-03 14:04] LABS: BILIRUBIN,TOTAL 2.5 mg/dL (0.2-1); TOT PROT 9.1 g/dl (6.4-8.2)
[2021-09-03 14:05] LABS: ALK PHOS 110 U/L (45-117)
[2021-09-03 14:09] LABS: GLUCOSE,RANDOM 97 mg/dL (74-106)
[2021-09-03 14:09] LABS: METHADONE, UR NEGATIVE (NEGATIVE)
[2021-09-03] MEDS ORDERED: DEXTROSE 10%-WATER 500 ML INFUS.BAG IV ONE (14:45)
[2021-09-03 14:50] VITALS: BP 111/82; PULSE 86; TEMP 99.6
== END 2021-09-03 16:13 | disposition home or self-care (01) ==
LOC: JER 11:38
PROC: 3E033GC Introduction of Other Therapeutic Substance into Peripheral Vein, Percutaneous Approach (ICD-10-PCS; principal; 2021-09-03)
PROC: 3E033GC Introduction of Other Therapeutic Substance into Peripheral Vein, Percutaneous Approach (ICD-10-PCS; 2021-09-03)
PROC: 3E033GC Introduction of Other Therapeutic Substance into Peripheral Vein, Percutaneous Approach (ICD-10-PCS; 2021-09-03)
DX: K29.20 Alcoholic gastritis without bleeding (principal); N39.0 Urinary tract infection, site not specified
CPT/HCPCS: 36415; 80053; 80307; 81003; 83690; 84703; 85025; 85610; 87086; 99284-25

== ENCOUNTER 2022-01-29 20:55 | Emergency (ER) | payer OTHER ==
[2022-01-29 21:36] VITALS: TEMP 97.8; BMI 27.1
[2022-01-29 23:36] VITALS: BP 135/93; PULSE 90
== END 2022-01-30 00:56 | disposition home or self-care (01) ==
LOC: JER 20:55
DX: H11.32 Conjunctival hemorrhage, left eye (principal)
CPT/HCPCS: 99283-25

== ENCOUNTER 2022-04-22 21:44 | Emergency (ER) | payer OTHER ==
[2022-04-22] MEDS ORDERED: ONDANSETRON *ODT* 4 MG TABLET SL ONE (22:36)
[2022-04-22] MEDS ORDERED: FAMOTIDINE 20 MG TABLET PO ONE (22:42)
[2022-04-22 22:48] VITALS: BP 135/97; PULSE 93; TEMP 98.3; BMI 26.6
[2022-04-22] MEDS ORDERED: FAMOTIDINE 20 MG TABLET ONE (23:19)
[2022-04-22] MEDS ORDERED: ONDANSETRON *ODT* 4 MG TABLET ONE (23:19)
[2022-04-22 23:34] LABS: BASO % 0.2 % (0-2.0); HEMATOCRIT 48.5 % (32.4-45.2); HEMOGLOBIN 15.9 GM/dL (10.7-15.3); MCH 31.8 pg (25.7-33.7); MCHC 32.7 g/dl (32.0-36.0); MEAN CELL VOLUME 97.4 fl (80-96); MEAN PLT VOLUME 10.7 fl (7.5-11.1); MONO % 6.6 % (3.8-10.2); NEUT % 89.2 % (42.8-82.8); PLATELET COUNT 147 10^3/uL (134-434); RBC 4.98 M/mm3 (3.60-5.2); WHITE BLOOD COUNT 14.5 K/mm3 (4.0-10.0)
[2022-04-22 23:54] LABS: CALCIUM 10.5 mg/dL (8.5-10.1)
[2022-04-22 23:55] LABS: ALBUMIN 4.6 g/dl (3.4-5.0); BLOOD UREA NITROGEN 8.2 mg/dL (7-18)
[2022-04-22 23:57] LABS: CREATININE 0.9 mg/dL (0.55-1.3)
[2022-04-22 23:59] LABS: BILIRUBIN,TOTAL 1.7 mg/dL (0.2-1); TOT PROT 9.7 g/dl (6.4-8.2)
[2022-04-23] MEDS ORDERED: HALOPERIDOL LACTATE 5 MG/ML IM ONE (00:23)
[2022-04-23] MEDS ORDERED: HALOPERIDOL LACTATE 5 MG/ML ONE (00:37)
[2022-04-23] MEDS ORDERED: LIDOCAINE VISCOUS 2% ORAL/TOP 15 ML UNIT-DOSE CUP MM ONE (01:44)
[2022-04-23] MEDS ORDERED: LIDOCAINE VISCOUS 2% ORAL/TOP 15 ML UNIT-DOSE CUP ONE (01:51)
== END 2022-04-23 02:03 | disposition home or self-care (01) ==
LOC: JER 21:44
PROC: 3E023NZ Introduction of Analgesics, Hypnotics, Sedatives into Muscle, Percutaneous Approach (ICD-10-PCS; principal; 2022-04-22)
DX: R11.2 Nausea with vomiting, unspecified (principal)
CPT/HCPCS: 36415; 80053; 83690; 85025; 99284-25; Q0162

== ENCOUNTER 2022-04-24 01:25 | Emergency (ER) | payer OTHER ==
[2022-04-24 01:53] VITALS: TEMP 98.1; BMI 25.8
[2022-04-24] MEDS ORDERED: MAG HYDROX/AL HYDROX/SIMETH -MYLANTA- ORAL SUSPENSION PO ONE (03:18)
[2022-04-24] MEDS ORDERED: FAMOTIDINE 20 MG/50 ML IVPB 20 MG/50 ML MG IVPB ONE ×2 (03:18→03:27)
[2022-04-24] MEDS ORDERED: ONDANSETRON 4 MG/2 ML VIAL IVPUSH ONE (03:18)
[2022-04-24] MEDS ORDERED: chlordiazePOXIDE HCL 25 MG CAPSULE PO ONE (03:18)
[2022-04-24] MEDS ORDERED: LACTATED RINGERS SOLUTION 1000 ML INFUS.BAG IV ONE (03:26)
[2022-04-24] MEDS ORDERED: chlordiazePOXIDE HCL 25 MG CAPSULE ONE (03:26)
[2022-04-24] MEDS ORDERED: MAG HYDROX/AL HYDROX/SIMETH 30 ML UNIT-DOSE CUP ONE (03:26)
[2022-04-24] MEDS ORDERED: ONDANSETRON 4 MG/2 ML VIAL ONE (03:27)
[2022-04-24 04:16] LABS: CALCIUM 10.6 mg/dL (8.5-10.1)
[2022-04-24 04:17] LABS: ALBUMIN 4.3 g/dl (3.4-5.0); BLOOD UREA NITROGEN 11.6 mg/dL (7-18)
[2022-04-24 04:18] LABS: BASO % 0.6 % (0-2.0); EOS % 0.3 % (0-4.5); HEMATOCRIT 48.2 % (32.4-45.2); HEMOGLOBIN 15.9 GM/dL (10.7-15.3); LYMPH % 10.7 % (8-40); MCH 31.4 pg (25.7-33.7); MEAN CELL VOLUME 95.2 fl (80-96); MEAN PLT VOLUME 11.4 fl (7.5-11.1); NEUT % 78.4 % (42.8-82.8); PLATELET COUNT 144 10^3/uL (134-434); RBC 5.06 M/mm3 (3.60-5.2); RDW 13.7 % (11.6-15.6); WHITE BLOOD COUNT 13.8 K/mm3 (4.0-10.0)
[2022-04-24 04:19] LABS: CREATININE 0.9 mg/dL (0.55-1.3)
[2022-04-24 04:21] LABS: BILIRUBIN,TOTAL 2.7 mg/dL (0.2-1); TOT PROT 9.2 g/dl (6.4-8.2)
[2022-04-24 04:58] VITALS: BP 122/76; PULSE 80
== END 2022-04-24 05:01 | disposition home or self-care (01) ==
LOC: JER 01:25
PROC: 3E033GC Introduction of Other Therapeutic Substance into Peripheral Vein, Percutaneous Approach (ICD-10-PCS; principal; 2022-04-24)
DX: R11.2 Nausea with vomiting, unspecified (principal); R10.13 Epigastric pain
CPT/HCPCS: 36415; 80053; 83690; 85025; 99284-25

== ENCOUNTER 2023-08-26 09:16 | Emergency (ER) | payer OTHER ==
[2023-08-26 09:33] VITALS: BMI 25.5
[2023-08-26 15:27] VITALS: BP 128/77; PULSE 66; RESP 18; TEMP 98.1
== END 2023-08-26 15:59 | disposition home or self-care (01) ==
LOC: JER 09:16
DX: O26.891 Other specified pregnancy related conditions, first trimester (principal); R10.30 Lower abdominal pain, unspecified; Z3A.12 12 weeks gestation of pregnancy
CPT/HCPCS: 36415; 76817-TC; 84702; 99284-25

== ENCOUNTER 2024-03-12 02:12 | Inpatient (IN) | payer OTHER ==
[2024-03-12] MEDS: ELECTROLYTE-148 SOLN 500 ML IV ONE (03:30)
[2024-03-12] MEDS: ELECTROLYTE-148 SOLN 1,000 ML IV SCH (04:00)
[2024-03-12 11:07] VITALS: BMI 31.4
[2024-03-12] MEDS: DINOPROSTONE 10 MG VAGINAL SUPPOSITORY VG ONE (11:20)
[2024-03-12 11:57] LABS: RETICULOCYTES 2.28 % (0.5-1.5)
[2024-03-12 12:01] LABS: INR 1.01 (0.83-1.09); PROTHROMBIN TIME (PATIENT) 11.4 SEC (9.7-13.0)
[2024-03-12 12:04] LABS: BASO % 0.1 % (0-2.0); EOS % 0.5 % (0-4.5); HEMATOCRIT 36.5 % (32.4-45.2); HEMOGLOBIN 11.7 GM/dL (10.7-15.3); LYMPH % 20.2 % (8-40); MCH 28.3 pg (25.7-33.7); MEAN CELL VOLUME 88.3 fl (80-96); MONO % 8.2 % (3.8-10.2); RBC 4.13 M/mm3 (3.60-5.2); RDW 13.5 % (11.6-15.6); WHITE BLOOD COUNT 9.6 K/mm3 (4.0-10.0)
[2024-03-12 12:11] LABS: POTASSIUM 3.9 mmol/L (3.5-5.1)
[2024-03-12 12:12] LABS: GAMMA GLUTAMYL TRANSPEPTIDASE 12 U/L (5-85)
[2024-03-12 12:13] LABS: BLOOD UREA NITROGEN 6.4 mg/dL (7-18); CALCIUM 8.9 mg/dL (8.5-10.1)
[2024-03-12 12:16] LABS: CREATININE 0.5 mg/dL (0.55-1.3); SGOT/AST 15 U/L (15-37); URIC ACID 4.4 mg/dL (2.6-7.2)
[2024-03-12 12:21] LABS: SGPT/ALT 19 U/L (13-61)
[2024-03-12 12:37] LABS: PLATELET COUNT 96 10^3/uL (134-434)
[2024-03-12] MEDS ORDERED: PROMETHAZINE HCL 25 MG/1 ML VIAL ONE (23:41)
[2024-03-12] MEDS ORDERED: BUTORPHANOL TARTRATE 2 MG/ML VIAL ONE (23:41)
[2024-03-13] MEDS: PROMETHAZINE HCL 25 MG/1 ML VIAL IVPB ONE (00:11)
[2024-03-13] MEDS: BUTORPHANOL TARTRATE 1 MG/ML VIAL IVPUSH PRN (00:11)
[2024-03-13] MEDS ORDERED: OXYTOCIN 30 UNITS in 0.9% NS 30 UNIT/500 ML INFUS.BAG IVPB ONE (00:40)
[2024-03-13] MEDS: OXYTOCIN 30 UNITS in 0.9% NS 30 UNIT/500 ML INFUS.BAG IVPB SCH (00:45)
[2024-03-13] MEDS ORDERED: FENTANYL/BUPIVACAINE/NS/PF - PCEA - 50 ML DISP.SYRIN EP ONE (02:01)
[2024-03-13] MEDS: FENTANYL/BUPIVACAINE/NS/PF - PCEA - 50 ML DISP.SYRIN EP SCH (02:40)
[2024-03-13] MEDS ORDERED: NALOXONE HCL 0.4 MG/ML VIAL IVPUSH PRN (02:54)
[2024-03-13] MEDS ORDERED: WITCH HAZEL 50% (TUCKS) 40 PAD/JAR PAD TP PRN (03:51)
[2024-03-13] MEDS ORDERED: oxyCODONE HCL 5 MG TABLET PO PRN (03:51)
[2024-03-13] MEDS ORDERED: METHYLERGONOVINE MALEATE 0.2 MG/1 ML AMP IM PRN (03:51)
[2024-03-13] MEDS ORDERED: BISACODYL 10 MG SUPP.RECT RC PRN (03:51)
[2024-03-13] MEDS ORDERED: BENZOCAINE 28 GM HEMORRHOIDAL OINTMENT TP PRN (03:51)
[2024-03-13] MEDS ORDERED: ACETAMINOPHEN 325 MG TABLET (FP) PO PRN (03:51)
[2024-03-13] MEDS ORDERED: BENZOCAINE 20% 57 GM BOTTLE TP PRN (03:51)
[2024-03-13] MEDS: OXYTOCIN 20 UNITS in 0.9% NS 20 UNIT/1,000 ML INFUS.BAG IV SCH (04:15)
[2024-03-13 04:27] LABS: CORD HCO3 25.4 mmHg (20-29); CORD PCO2 52.5 mmHg (30-78); CORD pH 7.302 (7.14-7.44)
[2024-03-13 04:28] LABS: CORD BASE EXCESS -2.4 mmol/L (0-2); CORD HCO3 22.5 mmHg (20-29); CORD PCO2 39.5 mmHg (30-78); CORD pH 7.374 (7.14-7.44)
[2024-03-13] MEDS: IBUPROFEN 600 MG TABLET (FP) PO PRN (07:30)
[2024-03-13 18:05] VITALS: RESP 18
[2024-03-14 07:04] LABS: BASO % 0.5 % (0-2.0); EOS % 0.4 % (0-4.5); HEMATOCRIT 30.5 % (32.4-45.2); HEMOGLOBIN 10.1 GM/dL (10.7-15.3); LYMPH % 21.2 % (8-40); MCH 29.1 pg (25.7-33.7); MCHC 33.1 g/dl (32.0-36.0); MEAN PLT VOLUME 12.1 fl (7.5-11.1); MONO % 9.2 % (3.8-10.2); NEUT % 68.7 % (42.8-82.8); PLATELET COUNT 92 10^3/uL (134-434); RBC 3.46 M/mm3 (3.60-5.2); RDW 13.2 % (11.6-15.6); WHITE BLOOD COUNT 10.3 K/mm3 (4.0-10.0)
[2024-03-14] MEDS ORDERED: SENNOSIDES/DOCUSATE COMBO (SENNA PLUS) TABLET (UD) PO PRN (22:00)
[2024-03-15 10:35] VITALS: BP 105/68; PULSE 84; TEMP 97.7
== END 2024-03-15 12:47 | disposition home or self-care (01) | DRG 560 ==
LOC: JDEL 02:12 → JLDR 10:05 → J3W 03-13 05:38
PROVIDERS: ADMIT Obstetrics & Gynecology; ATTEND Obstetrics & Gynecology
PROC: 3E0P7VZ Introduction of Hormone into Female Reproductive, Via Natural or Artificial Opening (ICD-10-PCS; 2024-03-12)
PROC: 3E033VJ Introduction of Other Hormone into Peripheral Vein, Percutaneous Approach (ICD-10-PCS; 2024-03-12)
PROC: 10E0XZZ Delivery of Products of Conception, External Approach (ICD-10-PCS; principal; 2024-03-13)
DX: O99.12 Other diseases of the blood and blood-forming organs and certain disorders involving the immune mechanism complicating childbirth (principal); D69.6 Thrombocytopenia, unspecified; D56.1 Beta thalassemia; O69.9XX0 Labor and delivery complicated by cord complication, unspecified, not applicable or unspecified; Z3A.40 40 weeks gestation of pregnancy; Z37.0 Single live birth
CPT/HCPCS: 36415; 36600; 59025; 76819-TC; 80048; 82803; 82977; 83010; 84450; 84460; 84550; 85025; 85032; 85045; 85610; 85730; 86780; 86850; 86900; 86901